=== PATIENT | female | born 1960 | race American Indian/Alaskan Native ===

== ENCOUNTER 2017-11-10 07:51 | Day surgery (SDC) | payer MEDICARE ==
[2017-11-10 08:35] VITALS: BMI 32.9
[2017-11-10 08:54] VITALS: O2SAT 100
[2017-11-10] MEDS ORDERED: Propofol 10 mg/ml Inj (20 ML) ONE ×2 (09:13→09:42)
[2017-11-10] MEDS ORDERED: Lidocaine Hydrochloride 5 ML INJ ONE (09:14)
[2017-11-10] MEDS ORDERED: Lactated Ringer's 1,000 ML IV SCH (09:15)
--- NOTE | 2017-11-10 10:19 | CP.SDSHP ---
Same Day Surgery H & P - History Proposed Procedure: colonoscopy - Previous Medical/Surgical History Cardiac: Hypertension Previous Surgical History: G bypass cholecystectomy intestinal obstruction - Allergies Allergies: Allergies buchu Allergy (Uncoded 11/10/17 08:31) RASH juniper oil Allergy (Uncoded 11/10/17 08:31) RASH parsley leaf Allergy (Uncoded 11/10/17 08:33) RASH steroids Allergy (Uncoded 11/10/17 08:33) RASH uva ursi Allergy (Uncoded 11/10/17 08:33) RASH - Physical Exam Vital Signs: Vital Signs 11/10/17 08:10 Temperature 98.9 F Pulse Rate 80 Respiratory 20 Rate Blood Pressure 142/65 O2 Sat by Pulse 100 Oximetry - Date & Time Date: 11/10/17 Time: 10:18 Short Stay Discharge - Short Stay Discharge Admitting Diagnosis/Reason for Visit: SCREENING Disposition: HOME/ ROUTINE
[2017-11-10] MEDS ORDERED: Albuterol HFA 90 mcg/actuation (8 g) ONE (10:23)
[2017-11-10] MEDS ORDERED: Lidocaine 2% Jelly (5 ml) TOP ONE (10:45)
[2017-11-10 12:41] VITALS: TEMP 99.1
[2017-11-10 12:46] VITALS: BP 142/58; PULSE 92; RESP 21
== END 2017-11-10 11:50 | disposition home or self-care (01) ==
LOC: C.ENDO 07:51
PROVIDERS: ATTEND Colon & Rectal Surgery
DX: Z12.11 Encounter for screening for malignant neoplasm of colon (principal); I10 Essential (primary) hypertension; K62.1 Rectal polyp; Q43.8 Other specified congenital malformations of intestine; Z90.49 Acquired absence of other specified parts of digestive tract; K64.8 Other hemorrhoids
CPT/HCPCS: 45380; 82948; 88305; J2704; J7120

== ENCOUNTER 2019-01-02 09:00 | Outpatient (CLI) | payer MEDICARE | END 2019-01-02 09:01 | disposition home or self-care (01) | LOC: C.CARD 09:00 | DX: R07.9 Chest pain, unspecified (principal) ==